=== PATIENT | female | born 1995 ===

== ENCOUNTER 2020-11-06 09:11 | Inpatient (IN) | payer MEDICAID ==
[~2020-11-06] VITALS: Ht 160 cm; Wt 78.0 kg
[2020-11-06] MEDS ORDERED: NEWBORN KIT ONE (09:17)
[2020-11-06] MEDS ORDERED: LIDOCAINE 1%, 20ML ONE (09:17)
[2020-11-06] MEDS ORDERED: OXYTOCIN 30U/ 0.9% NaCL 500ML 500 ML ONE ×2 (09:18→15:13)
[2020-11-06] MEDS ORDERED: MISOPROSTOL 200 MCG TABLET ONE (09:18)
[2020-11-06] MEDS ORDERED: FENTANYL PF 100 MCG/2ML ONE (09:19)
[2020-11-06] MEDS ORDERED: TERBUTALINE 1 MG/ML, 1ML IVPush PRN (09:30)
[2020-11-06] MEDS ORDERED: TERBUTALINE 1 MG/ML, 1ML SQ PRN (09:30)
[2020-11-06] MEDS ORDERED: ONDANSETRON 2MG/ML, 2ML IVPush PRN (09:30)
[2020-11-06] MEDS ORDERED: CALCIUM CARBONATE 500 MG TAB.CHEW PO PRN (09:30)
[2020-11-06] MEDS ORDERED: OXYTOCIN 30U/ 0.9% NaCL 500ML 500 ML IV PRN (09:30)
[2020-11-06] MEDS ORDERED: OXYTOCIN 30U/ 0.9% NaCL 500ML 500 ML IV ONE (09:30)
[2020-11-06] MEDS ORDERED: METOCLOPRAMIDE 5 MG/ML, 2ML IVPush PRN (09:30)
[2020-11-06] MEDS ORDERED: FENTANYL PF 100 MCG/2ML IVPush PRN (09:30)
[2020-11-06] MEDS ORDERED: FENTANYL PF 100 MCG/2ML IV PRN (09:30)
[2020-11-06] MEDS ORDERED: LACTATED RINGERS 1,000 ML IV SCH ×2 (09:30→11:00)
[2020-11-06] MEDS ORDERED: D5%-LACTATED RINGERS 1,000 ML IV SCH (09:30)
[2020-11-06] MEDS ORDERED: PLEASE ENTER HEIGHT AND WEIGHT MC SCH (09:30)
[2020-11-06 10:08] LABS: BASOPHILS % (AUTO) 0 % (0-1); EOSINOPHILS % (AUTO) 0 % (1-7); LYMPHOCYTES % (AUTO) 11 % (22-44); MEAN CORPUSCULAR HEMOGLOBIN 28.2 pg (27.0-34.8); MEAN CORPUSCULAR HGB CONC 33.6 g/dL (32.4-35.8); MEAN PLATELET VOLUME 8.6 fL (7.4-10.4); MONOCYTES % (AUTO) 4 % (2-9); NEUTROPHILS % (AUTO) 84 % (42-75); PLATELET COUNT 228 x10^3/uL (130-400); RED BLOOD COUNT 4.42 x10^6/uL (3.82-5.3); RED CELL DISTRIBUTION WIDTH 15.4 % (9.6-15.2)
[2020-11-06] MEDS ORDERED: albuterol inhaler (10:42)
[2020-11-06] MEDS ORDERED: PREN1TAB60 PO (10:42)
[2020-11-06] MEDS ORDERED: VALA500T4 PO (10:43)
[2020-11-06 10:50] VITALS: BP 114/62
[2020-11-06] MEDS ORDERED: FENTANYL/BUPIV./NS/PF 250 ML EPIDCONT ONE (10:53)
[2020-11-06] MEDS ORDERED: BUPIVACAINE 0.25% ONE (10:54)
[2020-11-06 10:56] LABS: MD SCAN
[2020-11-06] MEDS ORDERED: EPHEDRINE 50 MG/ML, 1ML IVPush PRN (11:00)
[2020-11-06] MEDS ORDERED: LACTATED RINGERS 1,000 ML IVBOLUS PRN (11:00)
[2020-11-06] MEDS ORDERED: NALOXONE 0.4 MG/ML, 1ML IVPush PRN (11:00)
[2020-11-06] MEDS ORDERED: FENTANYL/BUPIV./NS/PF 250 ML EPIDCONT SCH (11:00)
[2020-11-06 12:23] LABS: AMPHETAMINE SCREEN, URINE Negative (Negative); BARBITURATE SCREEN, URINE Negative (Negative); BENZODIAZEPINE SCREEN, URINE Negative (Negative); CANNABINOID SCREEN, URINE Negative (Negative); COCAINE SCREEN, URINE Negative (Negative); METHADONE SCREEN, URINE Negative (Negative); OPIATE SCREEN, URINE Negative (Negative)
[2020-11-06] MEDS ORDERED: SIMETHICONE 80 MG CHEW TAB PO PRN (12:30)
[2020-11-06] MEDS ORDERED: METHYLERGONOVINE 0.2 MG/ML IM PRN (12:30)
[2020-11-06] MEDS ORDERED: MISOPROSTOL 200 MCG TABLET PR PRN (12:30)
[2020-11-06] MEDS ORDERED: ACETAMINOPHEN 325 MG TABLET PO PRN ×2 (12:30)
[2020-11-06] MEDS ORDERED: OXYcodone/APAP 5/325MG TABLET PO PRN ×2 (12:30)
[2020-11-06] MEDS ORDERED: ONDANSETRON 2MG/ML, 2ML IV PRN (12:30)
[2020-11-06] MEDS ORDERED: IBUPROFEN 600 MG TABLET ONE (15:13)
[2020-11-06] MEDS: OXYTOCIN 30U/ 0.9% NaCL 500ML 500 ML IV SCH ×2 (15:14→22:30)
[2020-11-06] MEDS: IBUPROFEN 600 MG TABLET PO PRN ×2 (15:14→21:22)
[2020-11-06 16:00] VITALS: BP 96/60
[2020-11-06 19:58] VITALS: BP 108/70
[2020-11-06] MEDS: DOCUSATE 100 MG CAPSULE PO PRN (21:22)
[2020-11-06 23:42] VITALS: BP 97/58
[2020-11-07] MEDS: IBUPROFEN 600 MG TABLET PO PRN ×3 (02:24→15:44)
[2020-11-07 04:02] VITALS: BP 106/71
[2020-11-07 05:31] LABS: BASOPHILS % (AUTO) 0 % (0-1); EOSINOPHILS % (AUTO) 0 % (1-7); LYMPHOCYTES % (AUTO) 22 % (22-44); MEAN CORPUSCULAR HEMOGLOBIN 28.3 pg (27.0-34.8); MEAN CORPUSCULAR HGB CONC 33.2 g/dL (32.4-35.8); MEAN PLATELET VOLUME 8.9 fL (7.4-10.4); MONOCYTES % (AUTO) 8 % (2-9); NEUTROPHILS % (AUTO) 70 % (42-75); PLATELET COUNT 239 x10^3/uL (130-400); RED BLOOD COUNT 4.04 x10^6/uL (3.82-5.3); RED CELL DISTRIBUTION WIDTH 15.3 % (9.6-15.2)
[2020-11-07 06:43] LABS: MD SCAN
[2020-11-07] MEDS: OXYTOCIN 30U/ 0.9% NaCL 500ML 500 ML IV SCH (08:30)
[2020-11-07] MEDS ORDERED: PRENATAL VIT/IRON/FA 1 EACH TABLET PO SCH (09:00)
[2020-11-07 09:30] VITALS: BP 108/62
[2020-11-07] MEDS: DOCUSATE 100 MG CAPSULE PO PRN (09:37)
[2020-11-07 12:30] VITALS: BP 108/70
[2020-11-07] MEDS ORDERED: IBUP-1222 PO (12:50)
== END 2020-11-07 17:55 | disposition home or self-care (01) | DRG 807 ==
LOC: LDOP 09:11 → LDIP 09:19 → 2NW 15:43
PROVIDERS: ADMIT Obstetrics & Gynecology; ATTEND Obstetrics & Gynecology
PROC: 10E0XZZ Delivery of Products of Conception, External Approach (ICD-10-PCS; principal; 2020-11-06)
PROC: 3E0R3BZ Introduction of Anesthetic Agent into Spinal Canal, Percutaneous Approach (ICD-10-PCS; 2020-11-06)
PROC: 00HU33Z Insertion of Infusion Device into Spinal Canal, Percutaneous Approach (ICD-10-PCS; 2020-11-06)
DX: O76 Abnormality in fetal heart rate and rhythm complicating labor and delivery (principal); Z37.0 Single live birth; Z3A.39 39 weeks gestation of pregnancy; Z20.822 Contact with and (suspected) exposure to COVID-19
CPT/HCPCS: 36415; 80307; 85025; 86592; 86850; 86900; 87635; G0378; J3010; J2590; J7120